=== PATIENT | male | born 1995 | race Two or more races ===

== ENCOUNTER 2018-02-15 18:21 | Emergency (ER) | payer OTHER ==
[~2018-02-15] VITALS: Ht 172.7 cm; Wt 77.1 kg
[2018-02-15] MEDS ORDERED: IBUP600 PO (18:39)
[2018-02-15] MEDS ORDERED: Bactrim Ds Tab1 EACH PO (18:39)
== END 2018-02-15 18:50 | disposition home or self-care (01) ==
LOC: ER 18:21
DX: I88.9 Nonspecific lymphadenitis, unspecified (principal); Z79.899 Other long term (current) drug therapy
CPT/HCPCS: 99282